=== PATIENT | female | born 1945 | race Two or more races ===

== ENCOUNTER → 2020-05-26 | Outpatient (CLI) | payer MEDICARE ==
[~2020-05-26] MED LIST: ALBU2.5V14 NEB; ALEN70TA71 PO; AMLO-187 PO; CITA10TA4 PO; GLIP10TA13 PO; INSU100I32 SQ; LISI1TAB20 PO; METF10007 PO; OMEP40CA45 PO; PRAV20TA2 PO
== END ==
LOC: LAB 15:40
PROVIDERS: ATTEND Nurse Anesthetist, Certified Registered
DX: Z01.812 Encounter for preprocedural laboratory examination (principal); Z20.822 Contact with and (suspected) exposure to COVID-19
CPT/HCPCS: U0003; U0005

== ENCOUNTER → 2020-05-29 | Day surgery (SDC) | payer MEDICARE ==
[~2020-05-29] MED LIST changes: +IPRATRPIUM/ALBUTEROL 0.5/2.5MG 3 ML NEBU. NEB PRN; +IV RINGERS SOLUTION,LACTATED 1,000 ML IV SCH; +KETAMINE HCL IN NACL, ISO-OSM 50 MG/5 ML SYRINGE ONE; +LIDOCAINE 2% PF 5 ML VIAL. ONE; +MIDAZOLAM HCL PF 2 MG/2 ML VIAL. IV ONE; +PROPOFOL 10,000 MCG/ML (20ML) VIAL IV ONE
[2020-05-29 14:00] VITALS: BP 140/85
--- NOTE | 2020-05-29 14:20 | NUR ---
Discussed discharge instructions with tonyetn and son using maintenance person Aniya #[id number]. Patient and son verbalized understanding and had no questions at this time.
== END | disposition home or self-care (01) ==
LOC: SURG 11:30
PROVIDERS: ATTEND Internal Medicine Gastroenterology
DX: Z12.11 Encounter for screening for malignant neoplasm of colon (principal); R13.10 Dysphagia, unspecified; R12 Heartburn; K57.30 Diverticulosis of large intestine without perforation or abscess without bleeding; K64.0 First degree hemorrhoids; K63.5 Polyp of colon; K22.2 Esophageal obstruction; K29.70 Gastritis, unspecified, without bleeding; K44.9 Diaphragmatic hernia without obstruction or gangrene; I10 Essential (primary) hypertension; E11.9 Type 2 diabetes mellitus without complications; Z88.0 Allergy status to penicillin; Z79.4 Long term (current) use of insulin
CPT/HCPCS: 43235; 43450; 45380; 82947; 88305; 88342; 94640; J2001; J2704; J7120